=== PATIENT | female | born 1960 | race Caucasian/White ===

== ENCOUNTER 2024-05-13 23:50 | Emergency (ER) | payer MEDICARE, OTHER ==
[~2024-05-13] VITALS: Ht 170.2 cm; Wt 145.0 kg
[~2024-05-13 23:50] MED LIST: ASPIRIN 81 MG CHEW PO ONE; ASPIRIN EC81 MG PO; FENOFIBRATE134 MG PO; KLOR-CON 1010 MEQ PO; LEVOTHYROXINE125 MCG PO; MELOXICAM15 MG PO; METFORMIN HCL1000 MG PO; OMEPRAZOLE20 MG PO; PREDNISONE10 MG PO; PULMICORT FLE180 MCG INH; TRIAMTERENE-HC1 EAC2 PO; VITAMIN B122500 MCG PO; VITAMIN D5000 UNI1 PO
[2024-05-14] MEDS ORDERED: LIPITOR20 MG PO (00:04)
[2024-05-14] MEDS ORDERED: NITROGLYCERIN 0.4 MG SUBL ONE (00:05)
[2024-05-14] MEDS ORDERED: MESALAMINE1.2 GM PO (00:05)
[2024-05-14 00:15] LABS: HEMOGLOBIN 14.1 g/dL (12.0-18.0)
[2024-05-14] MEDS ORDERED: NITROGLYCERIN 0.4 MG SUBL SL ONE (00:15)
[2024-05-14 00:17] LABS: BASOPHILS 0.7 % (0-2); EOSINOPHILS 2.9 % (0-6); HEMATOCRIT 42.3 % (35.0-50.0); LYMPHOCYTES 27.1 % (24-44); MCH 26.1 (27-36); MCHC 33.3 g/dl (30-36); MCV 78.6 fl (81-99); MONOCYTES 8.8 % (0-12); NEUTROPHILS 60.5 % (39-80); PLATELET COUNT 302 K/uL (140-440); RBC 5.38 M/ul (4.3-5.7); RDW 16.1 (10.5-15.0)
[2024-05-14 00:31] LABS: ALBUMIN 3.1 g/dL (3.4-5.0); ALBUMIN/GLOBULIN RATIO 0.74 (1.1-2.4); ANION GAP 15.6 (7-21); BILIRUBIN, TOTAL 0.5 ng/dL (0.2-1.0); BUN/CREATININE RATIO 17.89 (6.0-28.6); CALCIUM 9.3 mg/dL (8.5-10.1); CREATININE, SERUM 0.95 mg/dL (0.55-1.02); MAGNESIUM 1.4 mg/dL (1.8-2.4); POTASSIUM 4.6 mmol/L (3.5-5.1); PROTEIN, TOTAL 7.3 g/dL (6.4-8.2)
[2024-05-14] MEDS ORDERED: MAGNESIUM OXIDE 400 MG TABLET PO ONE (00:45)
[2024-05-14 02:06] VITALS: BP 137/80
--- NOTE | 2024-05-14 11:24 | EKG ---
[facility] [address] [facility] [place], [place] [address] Signed Normal sinus rhythm Normal ECG No previous ECGs available Confirmed by Sandee Rey MD ([id number]) on 05/14/2024 11:24:17 AM Electronically Signed By: SANDEE REY MD 05/14/24 1124 PATIENT NAME: PARESH GARNICA Electrocardiogram DATE OF : 56 PHYSICIAN: SANDEE REY MD REPORT #: [id number] REPORT IS CONFIDENTIAL AND NOT TO BE RELEASED WITHOUT AUTHORIZATION
== END 2024-05-14 02:06 | disposition home or self-care (01) ==
LOC: ED 23:50
PROVIDERS: Internal Medicine
DX: R07.89 Other chest pain (principal); S46.812A Strain of other muscles, fascia and tendons at shoulder and upper arm level, left arm, initial encounter; X58.XXXA Exposure to other specified factors, initial encounter; I10 Essential (primary) hypertension; E11.9 Type 2 diabetes mellitus without complications; E78.5 Hyperlipidemia, unspecified; Z87.891 Personal history of nicotine dependence; Z88.2 Allergy status to sulfonamides; Z88.5 Allergy status to narcotic agent; Z79.82 Long term (current) use of aspirin; Z79.84 Long term (current) use of oral hypoglycemic drugs; Z79.890 Hormone replacement therapy; Z79.899 Other long term (current) drug therapy
CPT/HCPCS: 36415; 71045; 80053; 83735; 83880; 84484; 85025; 85379; 93005; 93010; 99285-25